=== PATIENT | female | born 1945 | race Caucasian/White ===

== ENCOUNTER 2019-01-10 11:39 | Inpatient (IN) | payer MEDICARE, OTHER ==
[~2019-01-10] VITALS: Ht 160 cm; Wt 77.6 kg
--- OUTSIDE RECORDS SUMMARY | ~2019-01-10 | XMS | Clinical Summary ---
Demographics + + + | Address | [address] | | | [place] [address] | + + + | Home Phone | | + + + | Preferred Language | Unknown | + + + | Marital Status | | + + + | Latter Day Affiliation | Unknown | + + + | Race | Unknown | + + + | Ethnic Group | Unknown | + + + Author + + + | Author | [facility] | | | and [place] | + + + | Organization | [facility] | | | and [place] | + + + | Address | Unknown | + + + | Phone | Unavailable | + + + Support + + +---------+ + | Name | Relationship | Address | Phone | + + +---------+ + | Dario Vega | PING | Unknown | | + + +---------+ + Care Team Providers + +------+ + | Care Engineering Coordinator Name | Role | Phone | + +------+ + | Maged Kim MD | PP | | + +------+ + Allergies No Known Allergies Medications + + + +---------+------+------+-------+ | Medication | Sig | Dispensed | Refills | Star | End | Statu | | | | | | t | Date | s | | | | | | Date | | | + + + +---------+------+------+-------+ | docusate-senna | Take 1 tablet by | 30 | 1 | 11/0 | | Activ | | (SENOKOT-S) 50-8.6 | mouth 2 times daily. | tablet | | 4/20 | | e | | mg per tablet | | | | 16 | | | + + + +---------+------+------+-------+ Active Problems +---------+ + | Problem | Noted Date | +---------+ + | Smoker | 06/25/2016 | +---------+ + Immunizations + + + + | Name | Dates Previously Given | Next Due | + + + + | INFLUENZA PF | 06/25/2016 | | | QUAD(PED/ADOL/ADULT) | | | | ,PSKT or VIAL | | | + + + + Social History + + + +--------+------+ | Tobacco Use | Types | Packs/Day | Years | Date | | | | | Used | | + + + +--------+------+ | Current Every Day | Cigarettes | 0.25 | 40 | | | Smoker | | | | | + + + +--------+------+ + +---+---+---+ | Smokeless Tobacco: | | | | | Never Used | | | | + +---+---+---+ + + +---------+ + | Alcohol Use | Drinks/We | oz/Week | Comments | | | ek | | | + + +---------+ + | No | | | | + + +---------+ + + + + | Sex Assigned at | Date Recorded | | | | + + + | Not on file | | + + + + + + + | Job Start Date | Occupation | Industry | + + + + | Not on file | Not on file | Not on file | + + + + + + + + | Travel History | Travel Start | Travel End | + + + + + + | No recent travel history available. | + + Last Filed Vital Signs + + + + | Vital Sign | Reading | Time Taken | + + + + | Blood Pressure | 116/57 | 06/26/2016801 PDT | + + + + | Pulse | 69 | 06/26/2016801 PDT | + + + + | Temperature | 36.9 C (98.5 F) | 06/26/2016801 PDT | + + + + | Respiratory Rate | 16 | 06/26/2016801 PDT | + + + + | Oxygen Saturation | 95% | 06/26/2016801 PDT | + + + + | Inhaled Oxygen | - | - | | Concentration | | | + + + + | Weight | 74.8 kg (165 lb) | 06/24/20161653 PDT | + + + + | Height | 158.8 cm (5' 2.5") | 06/24/20161653 PDT | + + + + | Body Mass Index | 29.7 | 06/24/20161653 PDT | + + + + Plan of Treatment + + + + + | Health Maintenance | Due Date | Last Done | Comments | + + + + + | Vaccine: | | | | | Dtap/Tdap/Td (1 - | 7 | | | | Tdap) | | | | + + + + + | Vaccine: Zoster (1 | | | | | of 2) | 8 | | | + + + + + | Vaccine: | | | | | Pneumococcal 65+ | 3 | | | | Low/Medium Risk (1 | | | | | of 2 - PCV13) | | | | + + + + + | Vaccine: Influenza | | 06/25/2016 | | | (Season Ended) | 9 | | | + + + + + Results Not on filefrom Last 3 Months Insurance + +--------+ +--------+ + +--------+ | Payer | Benefi | Subscriber | Effect | Phone | Address | Type | | | t Plan | ID | fabricio | | | | | | / | | Dates | | | | | | Group | | | | | | + +--------+ +--------+ + +--------+ | MEDICARE | MEDICA | [id number] | 08/23/19 | [phone] | | Medica | | | RE | | 13-Pre | 5 | | re | | | PART A | | sent | | | | | | AND B | | | | | | + +--------+ +--------+ + +--------+ | MODA | MODA | [id number] | 08/23/19 | [phone] | [address] | Indemn | | | HEALTH | | 16-Pre | 9 | [id number] | ity | | | MDCR | | sent | | [place], | | | | [place] | | | | [place] [address] | | + +--------+ +--------+ + +--------+ + +--------+ +--------+ + + | Guarantor Name | Accoun | Relation to | Date | Phone | Billing Address | | | t Type | Patient | of | | | | | | | | | | + +--------+ +--------+ + + | Johana Vega | Person | Self | [birth year] | [address] | | | claudia/Mark | | 1946 | [phone] | [place] | | | elizabeth | | | 4 (Home) | [address] | + +--------+ +--------+ + + Advance Directives Patient has advance care planning documents, and code status on file. For more information, please contact:[facility] [place] [phone] + + + + + | Code Status | Date | Date | Comments | | | Activated | Inactivated | | + + + + + | Full Code | 06/25/2016 | 06/26/2016 | | | | 14:35 | 15:52 | | + + + + +
[~2019-01-10 11:39] MED LIST: ASPIRIN325 MG PO; B COMPLEX1 EACH PO; CEPHALEXIN500 MG PO; DAILY VITAMIN1 EAC2 PO; GLUCOPHAGE XR500 MG PO; GLUCOSAMINE-CH1 EA17 PO; HYDROCODON-ACE1 EA11 PO; METFORMIN HCL500 MG PO; MICARDIS HCT 41 EACH PO; MIRALAX17 GM PO; OXYCODONE HCL5 MG PO; SIMVASTATIN20 MG PO; VITAMIN C1000 MG PO; VITAMIN D1000 UNI1 PO; XARELTO10 MG PO
[2019-01-10] MEDS ORDERED: ASPIRIN325 MG PO (11:56)
[2019-01-10] MEDS ORDERED: TELMISARTAN40 MG PO (11:57)
[2019-01-10] MEDS ORDERED: HYDROCHLOROTH12.5 MG PO (11:57)
--- NOTE | 2019-01-10 15:30 | NUR ---
PATIENT HERE TODAY FOR PREADMISSION APPOINTMENT. SHE IS SCHEDULED FOR A LEFT TOTAL KNEE REPLACEMENT ON 01/23/19. HER JOSELUIS WILL BE HERE TO TAKE HER HOME AND TO APPOINTMENTS NEEDED. SHE WILL BE ATTENDING THE JOINT BOOTCAMP ON 01/19/19 AND WOULD LIKE PHYSICAL THERAPY SET UP WITH [facility] AFTER SURGERY. SHE REPORTS HAVING A KNEE REPLACEMENT IN THE PAST AND STILL HAS HER WALKER, SHOWER CHAIR AND CRYO CUFF. THEY HAVE ONE STEP INTO THE HOME AND NO STEPS INSIDE. THERE IS A TUB/SHOWER IN THE HOME. THIS INFORMATION WILL BE SENT TO DR AYON OFFICE AND CASE MANAGEMENT FOR FURTHER FOLLOW UP.
--- NOTE | 2019-01-23 08:34 | NUR ---
01/23/19 0834 Rosalina Solorio SN 0827- PT ARRIVES TO PACU. NPA IN PLACE. TOLERATING WELL. PT OPENS EYES WHEN STIMULATE BY VOICE BUT FALLS BACK TO SLEEP INSTANTLY. RESPS EVEN AND UNLABORED, 02 SAT HIGH 90S ON 10L VIA MASK. PT UNABLE TO REPORT PAIN NAUSE AND DIZZINESS AT THIS TIME.
--- NOTE | 2019-01-23 10:15 | NUR ---
PT ARRIVED TO ROOM 119 BEDSIDE REPORT BY MURRAY HOU AND PRECEPTOR, PT ALERT AND REPORTS PAIN IS WELL MANAGED AT THIS TIME. PT ON 2L OXYGEN 91% SATURATION. SPOUSE AT BESIDE
--- NOTE | 2019-01-23 10:30 | NUR ---
NOTIFIED OF CONSULT ORDER.
--- NOTE | 2019-01-23 11:55 | NUR ---
PT SITTING UP IN BED ALERT AND ORIENTED, LUNCH ORDER, HAS HAD TWO CUPS OF COFFEE.
--- NOTE | 2019-01-23 12:46 | NUR ---
PT UP TO BEDSIDE COMMODE TO VOID, VOIDED 300ML OF URINE, AMBULATED ONE PERSON ASSIST TO RECLINER WITH FWW. PT REPORTS PAIN IS 1/10, WELL MANAGED PER PATIENT REPORT.
--- NOTE | 2019-01-23 13:56 | NUR ---
PT UP TO BATHROOM WITH THIS RN AND PHYSICLA THERAPY PT HAD SMALL INCONT. OF URINE WHILE GETTING UP OUT OF RECLINER. PT HAS URINE ON TEDS, CHANGED TEDS. PT REPORTS PAIN WELL MANAGED AT THIS TIME.
--- NOTE | 2019-01-23 15:05 | NUR ---
PATIENT UP TO BATHROOM, 1PA FWW. CALL LIGHT IN REACH. NO FURTHER NEEDS AT THIS TIME.
--- NOTE | 2019-01-23 15:41 | OR ---
[facility] [address] [place], [place] [address] Signed DATE OF OPERATION: 01/23/2019 SURGEON: Yesika Hill MD PREOPERATIVE DIAGNOSIS: Degenerative joint disease, left knee, severe. POSTOPERATIVE DIAGNOSIS: Degenerative joint disease, left knee, severe. PROCEDURE PERFORMED: Left total knee arthroplasty with computer navigation. UROLOGIC SURGEON: Candie Hemphill PA-C. BLOOD LOSS: 125 mL. TOURNIQUET TIME: Zero. IMPLANTS: Danie Triathlon size 4, 11 mm insert, and 32 mm patella. BRIEF HISTORY: Cooper is a 73-year-old female with progressive worsening of her osteoarthritis. She had undergone successful right total knee and wished to proceed with left. Risks and benefits of operative treatment were discussed with her and she elected to proceed. DESCRIPTION OF PROCEDURE: Once consent was obtained, she was taken to the operating room. After adequate anesthesia, she was placed on operating table. Hip bump was placed and the leg was prepped and draped in a standard sterile fashion. Anterior midline incision was then marked out and incised longitudinally. It was taken through skin and subcutaneous tissue. Flaps were developed. The median parapatellar arthrotomy was performed and the infrapatellar fat pad was excised. The MCL was elevated with a sleeve around the posteromedial corner. The knee was flexed. Anterior horns of menisci were transected and the ACL was transected. The PCL was found to be intact. The navigation guide was pinned to the distal femur and the distal femur was registered with the computer. The Electronically Signed By: YESIKA HILL MD 01/23/19 1541 PATIENT NAME: COOPER KELLY OPERATIVE REPORT DATE OF : 49 REPORT #: [id number] PHYSICIAN: YESIKA HILL MD PCP: ELLE COOPER MD REPORT IS CONFIDENTIAL AND NOT TO BE RELEASED WITHOUT AUTHORIZATION [facility] [address], [place] [address] Signed distal femoral cutting guide was then pinned in neutral alignment and set to take 9 mm off the lateral side. The cutting block was pinned and the cut was made with care taken to protect the surrounding soft tissues. The bone was excised as were any osteophytes. The distal femur was sized to a 4, which matched her opposite side. The AP cutting block was pinned in alignment with epicondylar axis. The anterior, posterior, and chamfer cuts were made. The bone pieces were removed. Attention was then turned to the proximal tibia. The navigation guide was again pinned to the proximal tibia and the tibia was registered with the computer. The cutting block was then pinned in neutral alignment and the tibial cut was made with care taken to protect the surrounding soft tissues once again. The bone block was removed as were any meniscal remnants. Posterior osteophytes removed off the femur. Posterior release performed. The flexion extension gaps were sized and found to be symmetric at 11 mm. The trials were then positioned. Knee was taken through range of motion and found to be quite stable. The patella was cut sized and drilled for a 32 mm patella. The distal femoral drill holes were made and the keel punch was used to finish the tibia. The bone surfaces were pulse lavaged and packed with dry Ray-Luis Alberto. Cement was mixed and reached proper consistency, placed all implants on all bone surfaces. Tibia was impacted into position first and all excess cement was removed. The polyethylene was snapped into position and the femur was impacted, and again all remaining overflow was removed. The knee was extended and nicely loaded. The patella was clamped into position and overflow was removed. The cement was allowed to harden. Once it hardened sufficiently, the knee was flexed and remaining overflow was removed using osteotomes. The knee was pulse lavaged at intervals throughout the procedure. A total of 3 L antibiotic irrigation and 0.5 L of IrriSept was used. The On-Q pain pump was then placed from the suprapatellar pouch into the adductor canal. This was done percutaneously. The bleeders were cauterized as we went. There was minimal bleeding. The arthrotomy was then closed using #2 Stratafix, subcutaneous tissue with #0 Stratafix, and skin with Dermabond mesh. The wound was dressed with a DOUG wound VAC dressing and [place] wrap. She tolerated the procedure well. All sponge, needle, and instrument counts were correct. Yesika Hill MD BA/MODL /[id number] Electronically Signed By: YESIKA HILL MD 01/23/19 1541 PATIENT NAME: COOPER KELLY OPERATIVE REPORT DATE OF : 49 REPORT #: [id number] PHYSICIAN: YESIKA HILL MD PCP: ELLE COOPER MD REPORT IS CONFIDENTIAL AND NOT TO BE RELEASED WITHOUT AUTHORIZATION [address] [address] Signed Copies: ~ Electronically Signed By: YESIKA HILL MD 01/23/19 1541 PATIENT NAME: COOPER KELLY OPERATIVE REPORT DATE OF : 49 REPORT #: [id number] PHYSICIAN: YESIKA HILL MD PCP: ELLE COOPER MD REPORT IS CONFIDENTIAL AND NOT TO BE RELEASED WITHOUT AUTHORIZATION
--- NOTE | 2019-01-23 16:40 | NUR ---
PT RESTING IN RECLINER, AFTER UP TO BATHROOM STANDBY ASSIST, SHE REPORTS PAIN 2/10 "MINIMAL" PAIN IS WELL MANAGED AT THIS TIME PER PT REPORT. PT IS ON ROOM AIR 95% OXYGEN SATURATION. NO DISTRESS NOTED DRESSING CDI. NO NAUSEA. TOLERATING REGULAR DIABETIC DIET WELL, GREAT PO INTAKE/URINE OUT.
[2019-01-23] MEDS ORDERED: B-12500 MCG PO (17:02)
[2019-01-23] MEDS ORDERED: VITAMIN D31000 UNI1 PO (17:02)
[2019-01-23] MEDS ORDERED: ONE DAILY WOME1 EACH PO (17:03)
--- NOTE | 2019-01-23 18:12 | NUR ---
PATIENT UP TO BATHROOM, 1PA FWW. CALL LIGHT IN REACH. NO FURTHER NEEDS AT THIS TIME.
--- NOTE | 2019-01-23 18:45 | NUR ---
PT IS TOLERATING DIET WELL WITH GOOD INTAKE AND NO NAUSEA, ON ROOM AIR, VOIDING WELL, HAS BEEN UP WITH PHYSICAL THERAPY AND STAFF, ONE PERSON ASSIST WITH FWW, VERY STEADY GAIT. SHE HAS REPORTED PAIN 1-2/10 OVER SHIFT, SHE REPORTS WELL MANAGED. DRESSING CDI, DOUG OPERATIONAL WNL, ON QUE SET AT "6" WHEN ARRIVED FROM PACU. PT IS S/L. TEDS/SCDS/HEEL PROTECTORS/ CRYO CUFF ON AND ICED.
--- NOTE | 2019-01-23 19:10 | NUR ---
REPORT RECEIVED FROM DAY SHIFT RNEKNDALL. PT IN BED, ALERT AND ORIENTED. PT DENIES PAIN. CRYO, SCD'S, HP, IN PLACE. PT DENIES NEEDS OR REQUESTS AT THIS TIME. CALL LIGHT IN REACH.
--- NOTE | 2019-01-23 20:40 | NUR ---
PM MEDS ADMINISTERED WITHOUT DIFFICUTLY. ASSESSENT COMPLETE. PT DENIES PAIN. DRESSING CDI, ON-Q PUMP IN PLACE. CMS INTACT. FRESH ICE IN CRYO. SCD'S TEDS, AND HP IN PLACE. PT DENIES OTHER NEEDS AT THIS TIME. CALL LIGHT IN REACH.
--- NOTE | 2019-01-23 21:26 | NUR ---
PATIENT ASSISTED FROM THE RESTROOM TO THE BED. PATIENT IS A SBA W/FWW AND TOLERATES AMBULATION WELL. PATIENT DENIES ANY PAIN WITH AMBULATION. PATIENT IS BACK IN BED RESTING. PATIENT HAS SCDS, TEDHOSE, AND HEEL PROTECTORS ON BILAT LOW EXT. PATIENT HAS CRYO APPLIED TO LEFT KNEE. PATIENTS CRYO REFILLED WITH ICE. PATIENTS ICE WATER REFILLED. NO FURTHER NEEDS NOTED. CALL LIGHT IN REACH.
--- NOTE | 2019-01-23 23:45 | NUR ---
PT UP TO BR WITH FWW AND SBA TO HAVE A SMALL BM. PT BACK TO BED. KARIS WELL. SCD'S, CRYO, HP IN PLACE. ON-Q PUMP IN PLACE. IV ABX INFUSING. CPOX AND O2 2LNC IN PLACE. PT DENIES OTHER NEEDS AT THIS TIME. CALL LIGHT IN REACH.
--- NOTE | 2019-01-24 00:10 | NUR ---
PT UP TO BR WITH FWW AND SBA TO HAVE A LARGE LOOSE BM. PT BACK TO BED. AMB WITHOUT DIFFICULTY. SCD'S, CRYO, ON-Q PUMP IN PLACE. PT DENIES OTHER NEEDS. CALL LIGHT IN REACH.
--- NOTE | 2019-01-24 02:24 | NUR ---
PT INCONTINENT OF LOOSE STOOL IN BED. TO THE BR WITH SBA AND FWW WALKER. PT BACK TO BED. DENIES PAIN, STATES "IT'S JUST KIND OF SORE". SCD'S, CRYO, HP, ON-Q PUMP IN PLACE. DRESSING CDI. O2 2LNC AND CPOX IN PLACE. PT DENIES OTHER NEEDS AT THIS TIME. CALL LIGHT IN REACH.
--- NOTE | 2019-01-24 04:50 | NUR ---
PT RESTING IN BED WITH EYES CLOSED. CPOX 91% ON 2LNC. SCD'S, CRYO, HP IN PLACE. CALL LIGHT IN REACH.
--- NOTE | 2019-01-24 05:22 | NUR ---
PT SLEPT WELL. UP 3X TO HAVE LOOSE STOOL. PT C/O 1-3/10 PAIN, DENIED ADDITIONAL PAIN MEDICATION. NO C/O NAUSEA. DOUG DRESSIG CDI. ON-Q PUMP IN PLACE. SCD'S, TEDS, HP, CRYO IN PLACE. PT AMB WITH SBA AND FWW, STEADY GAIT. O2 2LNC AND CPOX IN PLACE. O2 SATS 88% TO MID 90'S.
--- NOTE | 2019-01-24 07:25 | NUR ---
PT RESTING IN BED EYES CLOSED R EVEN AT 16 BPM ON 2L OXYGEN WHILE SLEEPING. PT APPEARS TO BE SLEEPING
--- NOTE | 2019-01-24 07:56 | NUR ---
PT SITTING IN CHAIR-ALERT AND ORIENTED. SHE HAS HAD R KNEE REPLACED SEVERAL YRS AGO AND IS LOOKING FOR EVEN BETTER SUCCESS AND MOBILITY WITH THIS KNEE. HAD PLEASANT VISIT, PAIN IS 1. PT HAS TRIP PLANNED TO [place] LATER THIS YEAR-PT SEEMS VERY MOTIVATED. EXTENDED A BLESSING, WILL FOLLOW NEEDED
[2019-01-24] MEDS ORDERED: NUCYNTA75 MG PO (08:37)
[2019-01-24] MEDS ORDERED: CELECOXIB200 MG PO (08:37)
[2019-01-24] MEDS ORDERED: GABAPENTIN600 MG PO (08:37)
[2019-01-24] MEDS ORDERED: HEALTHYLAX17 GM PO (08:38)
[2019-01-24] MEDS ORDERED: SENNA LAX8.6 MG PO (08:38)
[2019-01-24] MEDS ORDERED: TYLENOL EXTRA500 MG PO (08:38)
--- NOTE | 2019-01-24 08:44 | NUR ---
PT UP TO BATHROOM NOW SITTING AT SIDE OF BED EATING BREAKFAST. HAS ROUNDED. PT REPORTS PAIN IS WELL MANAGED AT THIS TIME.
--- NOTE | 2019-01-24 08:57 | NUR ---
PT IS DRESSED AND UP TO BATHROOM AT THIS TIME. SHE REPORTS PAIN IS WELL MANAGED AT THIS TIME
--- NOTE | 2019-01-24 10:09 | NUR ---
PATIENT UP TO BATHROOM AND BACK TO BED, SBA FWW. OT IN ROOM. FRESH WATER GIVEN. CRYO FILLED. CALL LIGHT IN REACH. NO FURTHER NEEDS AT THIS TIME.
--- NOTE | 2019-01-24 12:07 | NUR ---
PT SITTING UP IN RECLINER REPORTS NO PAIN AFTER WORKING WITH PHYSICAL THERAPY. DRESSING IS CLEAN/DRY/INTACT. PT IS LOOKING FORWARD TO DISCHARGE THIS AFTERNOON.
--- NOTE | 2019-01-24 14:09 | NUR ---
PT UP WORKING WITH PHYSICAL THERAPY AT THIS TIME.
--- NOTE | 2019-01-24 14:29 | NUR ---
PATIENT IN BED, PHARMACY IN ROOM. CALL LIGHT IN REACH. NO FURTHER NEEDS AT THIS TIME.
--- NOTE | 2019-01-24 14:52 | NUR ---
PHARMACY MELINA COELHO GIVE EDUCATION ON MEDICATIONS AND SIDE EFFECTS.
--- NOTE | 2019-01-24 15:40 | NUR ---
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 . HE SAID TO GO AHEAD AND PLACE ORDER.
--- NOTE | 2019-01-24 16:25 | NUR ---
PT EDUCATIONS AND PACKET PROVIDED TO PT AND PT'S SPOUSE JOSELUIS. EDUCATION IN REGARDS TO SIGNS AND SYMPTOMS TO SEEK MEDICAL ATTENTION RIGHT AWAY, SUCH INCREASED PAIN NOT MANAGED BY RX, EXCESS DRAINAGE/BLEEDING, FALL. EDUCATION ON RESTRICTIONS AND ACTIVITY. NO DRIVING, MEDICATION LAST DOSE AND NEXT DOSE. DRESSING CDI AT THIS TIME, PT REPORTS NO PAIN, STANDBY ASSIST WITH FWW, STEADY GAIT. PT TO GO TO OFFICE FOR DRESSING CHANGE ON WEDNESDAY.
== END 2019-01-24 16:35 | disposition home or self-care (01) | DRG 470 ==
LOC: DSVR 01-23 05:40 → MS 01-23 05:40
PROVIDERS: ADMIT Specialist
PROC: 8E0YXBZ Computer Assisted Procedure of Lower Extremity (ICD-10-PCS; 2019-01-23)
PROC: 3E0T3BZ Introduction of Anesthetic Agent into Peripheral Nerves and Plexi, Percutaneous Approach (ICD-10-PCS; 2019-01-23)
PROC: 0SRD0J9 Replacement of Left Knee Joint with Synthetic Substitute, Cemented, Open Approach (ICD-10-PCS; principal; 2019-01-23 06:45)
DX: M17.12 Unilateral primary osteoarthritis, left knee (principal); G89.18 Other acute postprocedural pain; E11.9 Type 2 diabetes mellitus without complications; F51.01 Primary insomnia; E04.9 Nontoxic goiter, unspecified; E78.5 Hyperlipidemia, unspecified; I10 Essential (primary) hypertension; F17.210 Nicotine dependence, cigarettes, uncomplicated; Z96.651 Presence of right artificial knee joint; Z79.84 Long term (current) use of oral hypoglycemic drugs; Z79.82 Long term (current) use of aspirin; Z79.899 Other long term (current) drug therapy; Z88.4 Allergy status to anesthetic agent; Z88.5 Allergy status to narcotic agent
CPT/HCPCS: 01402; 36415; 64447; 76942; 80048; 85025; 94762; 97110; 97116; 97161; C1713; C1776; J0131; J0690; J0735; J1100; J1885; J2250; J2405; J2704; J2765; J2795; J3010; J7040; J7120; J8540

== ENCOUNTER 2019-10-27 08:57 | Day surgery (SDC) | payer MEDICARE, OTHER ==
[~2019-10-27] VITALS: Ht 160 cm; Wt 77.1 kg
[~2019-10-27 08:57] MED LIST changes: +B-12500 MCG PO; +CELECOXIB200 MG PO; +GABAPENTIN600 MG PO; +HEALTHYLAX17 GM PO; +HYDROCHLOROTH12.5 MG PO; +NUCYNTA75 MG PO; +ONE DAILY WOME1 EACH PO; +SENNA LAX8.6 MG PO; +TELMISARTAN40 MG PO; +TYLENOL EXTRA500 MG PO; +VITAMIN D31000 UNI1 PO
[2019-10-27] MEDS ORDERED: HYDROCHLOROTH12.5 M1 PO (09:23)
--- NOTE | 2019-10-27 11:48 | NUR ---
10/27/19 Familia8 Meenu Braga 1142-PT ARRIVES TO PACU ON 2 L AND IS AWAKE AND ALERT. PT TITRATED TO RA. VSS. SATS >90%. PT ENC TO PASS GAS AND IS ABLE TO DO SO.. PT DENIES PAIN/NAUSEA. 1146-PT LAYING LEFT LATERAL AND PASSES GAS. RA SATS DROP TO 88%. 2 L NC REAPPLIED. 100% SATS FOLLOW UP.
--- NOTE | 2019-10-30 09:22 | OR ---
[facility] [address] [place], [place] [address] Signed DATE OF OPERATION: 10/27/2019 SURGEON: Gopi Subramanian MD PREOPERATIVE DIAGNOSIS: Colon surveillance. POSTOPERATIVE DIAGNOSES: 1. Sigmoid diverticulosis. 2. Small polyp of rectosigmoid and multiple small hyperplastic polyps of low rectum. PROCEDURE: Total colonoscopy to cecum with cold morcellation polypectomy x4. ANESTHESIA: Intravenous sedation, fentanyl 100 mcg, Versed 5 mg. INDICATION: This 74-year-old white woman is a patient of Dr. Elle Kim and last underwent colonoscopy seven years ago, which was normal. She is symptom-free, generally speaking. She has no family history of colon cancer. She is admitted at this time to undergo colonoscopy for surveillance, understands the risks of bleeding, infection, and perforation. FINDINGS: The prep was excellent. Complete colonoscopy was undertaken to the cecum without question. She had numerous diverticula of the sigmoid and left colon. She had a small polyp of the rectosigmoid, which was excised independently of several small hyperplastic polyps in the low rectum. There were no other findings of concern. DESCRIPTION OF PROCEDURE: The patient was brought to the endoscopy suite and placed in lateral decubitus position, given intravenous sedation to the point of slurred speech and nystagmus. Digital rectal examination was normal. An Olympus video colonoscope was passed in the rectum and manipulated throughout the colon noting diverticula of the sigmoid and left colon. The scope was ultimately advanced to the cecum. The ileocecal valve and appendiceal orifice were normal. The scope was withdrawn from that point and examination undertaken showed no sign of abnormality into the left colon where diverticula were noted once again. At the Electronically Signed By: GOPI SUBRAMANIAN MD 10/30/19 0922 PATIENT NAME: COOPER KELLY OPERATIVE REPORT DATE OF : 49 REPORT #: [id number] PHYSICIAN: GOPI SUBRAMANIAN MD PCP: ELLE KIM MD REPORT IS CONFIDENTIAL AND NOT TO BE RELEASED WITHOUT AUTHORIZATION [facility] [address] [facility] [place], [place] [address] Signed rectosigmoid, there was a small polyp. This was excised with cold morcellation technique. Further withdrawal of scope and retroflexed view showed multiple small hyperplastic polyps of the low rectum. These were excised with cold morcellation technique and passed together in the same specimen jar. The scope was straightened, withdrawn, removed, and the patient was taken to recovery room in good condition. CONCLUDING DIAGNOSIS: Multiple polyps, probably all hyperplastic. PLAN: Recommend repeat colonoscopy in 5 years sooner if clinically indicated. MD DEON Soto/YULISSA /[id number] cc: Elle Kim MD Copies: ELLE KIM MD ~ Electronically Signed By: GOPI SUBRAMANIAN MD 10/30/19 0922 PATIENT NAME: COOPER KELLY OPERATIVE REPORT DATE OF : 49 REPORT #: [id number] PHYSICIAN: GOPI SUBRAMANIAN MD PCP: ELLE KIM MD REPORT IS CONFIDENTIAL AND NOT TO BE RELEASED WITHOUT AUTHORIZATION
--- NOTE | 2019-10-30 11:26 | PATH ---
[facility] [address] [place], [place] [address] Signed SPECIMEN(S): A RECTOSIGMOID POLYP SPECIMEN(S): B LOW RECTUM POLYPS SPECIMEN SOURCE: A. RECTOSIGMOID POLYP B. LOW RECTUM POLYPS CLINICAL HISTORY: Post: Polyp x3, diverticulosis. MICROSCOPIC DESCRIPTION: Histologic sections of all submitted blocks are examined by light microscopy. These findings, together with the gross examination, support the pathologic diagnosis. FINAL PATHOLOGIC DIAGNOSIS: A. Colon, rectosigmoid, polyp, polypectomy: - Fragments of hyperplastic polyp. - Negative for dysplasia or malignancy. B. Low rectum, polyps, polypectomy: - Fragments of hyperplastic polyps. - Negative for dysplasia or malignancy. NAL:cml:C2NR GROSS DESCRIPTION: Two specimens are received in two containers, labeled "PN." A. The specimen, labeled "PN, #1" and "rectosigmoid polyp" on the requisition, is received in formalin and consists of a 0.2 cm soft cardozo tissue fragment that is submitted in toto in cassette A1. B. The specimen, labeled "PN, #2" and "low rectum polyps" on the requisition, is received in formalin and consists of four soft cardozo tissue fragments that vary from 0.1-0.2 cm and are submitted in toto in cassette B1. SS (under the direct supervision of a pathologist) The Gross Description was prepared using a voice recognition system. The report was reviewed for accuracy; however, sound-alike word errors, addition and/or deletions may occur. If there is any question about this report, please contact Client Services. PERFORMING LABORATORY: The technical component was performed by [employer], [address] [place] [id number] (Certified Medical Transcriptionist: Lore Arrieta MD; CLIA# [id number]). PATIENT NAME: COOPER KELLY PATHOLOGY DATE OF : 49 REPORT #: [id number] PHYSICIAN: [facility] PCP: ELLE COOPER MD REPORT IS CONFIDENTIAL AND NOT TO BE RELEASED WITHOUT AUTHORIZATION [facility] [address] [place], [place] [address] Signed [facility] [address] [address] (CLIA# [id number]). Diagnostician: Allison Gentile MD Pathologist Electronically Signed 10/30/2019 Copies: ~ PATIENT NAME: COOPER KELLY PATHOLOGY DATE OF : 49 REPORT #: [id number] PHYSICIAN: [facility] PATH[facility] PCP: ELLE COOPER MD REPORT IS CONFIDENTIAL AND NOT TO BE RELEASED WITHOUT AUTHORIZATION
== END 2019-10-27 12:25 | disposition home or self-care (01) ==
LOC: OPS 08:57 → DS 08:57 → OPS 09:45 → DS 10:30 → OPS 12:25
PROVIDERS: Surgery
PROC: 0DBP8ZZ Excision of Rectum, Via Natural or Artificial Opening Endoscopic (ICD-10-PCS; 2019-10-27)
PROC: 0DBN8ZZ Excision of Sigmoid Colon, Via Natural or Artificial Opening Endoscopic (ICD-10-PCS; principal; 2019-10-27 09:45)
DX: Z12.11 Encounter for screening for malignant neoplasm of colon (principal); K63.5 Polyp of colon; K62.1 Rectal polyp; K57.30 Diverticulosis of large intestine without perforation or abscess without bleeding; I10 Essential (primary) hypertension; E04.2 Nontoxic multinodular goiter; Z91.038 Other insect allergy status; Z79.82 Long term (current) use of aspirin; Z79.84 Long term (current) use of oral hypoglycemic drugs; Z79.899 Other long term (current) drug therapy; Z98.890 Other specified postprocedural states
CPT/HCPCS: J0690; J2250; J3010; J7121